=== PATIENT | female | born 1950 | race Caucasian/White ===

== ENCOUNTER 2017-01-27 11:02 | Outpatient (CLI) | payer MEDICARE ==
[2017-01-27 12:01] LABS: Cardiac Risk 3.7 (Less than 4.5)
[2017-01-27 12:03] LABS: #Basophils 0.1 thou/uL (0.0-0.2); #Eosinphils 0.2 thou/uL (0.0-0.7); #Lymphocytes 1.4 thou/uL (1.20-3.40); #Monocytes 0.4 thou/uL (0.11-0.59); #Neutrophils 4.2 thou/uL (1.40-6.50); %Basophils 0.9 % (0.0-1.0); %Eosinophils 3.9 % (0.0-10.0); %Lymphocytes 22.6 % (21.0-51.0); %Monocytes 5.9 % (0.0-10.0); %Neutrophils 66.6 % (42.0-75.0); Hemoglobin 13.5 g/dL (12.0-16.0); Mean Corpuscular HGB CONC 32.1 g/dL (32.0-36.0); Mean Corpuscular Hemoglobin 27.3 pg (27.0-31.0); Mean Platelet Volume 7.8 fL (7.4-10.4); Platelet Count 180 thou/uL (130-400); Red Blood Cell (RBC) Count 4.96 mill/uL (4.20-5.40); White Blood Cell (WBC) Count 6.4 thou/uL (4.8-10.8)
[2017-01-27 12:17] LABS: Free T4 (Free Thyroxine) 1.14 ng/dL (0.70-1.48); Thyroid Stimulating Hormone 0.4793 uIU/mL (0.35-4.94)
[2017-01-27 21:25] LABS: Vitamin D, 25 Hydroxy 30.9 ng/ml (> 30.0)
== END 2017-01-27 11:03 | disposition home or self-care (01) ==
LOC: MADLAB 11:02
PROVIDERS: ATTEND Internal Medicine Geriatric Medicine
DX: E03.9 Hypothyroidism, unspecified (principal); D53.9 Nutritional anemia, unspecified; E55.9 Vitamin D deficiency, unspecified
CPT/HCPCS: 36415; 80061; 82306; 84439; 84443; 84481; 85025